=== PATIENT | female | born 1960 | race Caucasian/White ===

== ENCOUNTER 2024-07-17 20:56 | Emergency (ER) | payer SELFPAY ==
[2024-07-17 21:24] VITALS: BP 143/95
[2024-07-17 21:48] LABS: Urine Albumin 1+ (Neg - Trace); Urine Bilirubin 1+ (Negative); Urine Character Clear (Clear); Urine Color Yellow; Urine Glucose Trace (Negative); Urine Ketone Trace (Negative); Urine Leukocyte Negative (Negative); Urine Nitrite Negative (Negative); Urine Occult Blood Negative (Negative); Urine Specific Gravity 1.025 (<1.030); Urine Urobilinogen Negative (Neg - 1+)
[2024-07-17 21:54] LABS: % Basophils 0.1 % (0-2); % Eosinophils 0.1 % (0-6); % Immature Granulocytes 0.4 % (0-0.5); % Lymphocytes 3.5 % (20.5-51.1); % Monocytes 2.4 % (1.7-9.3); % Neutrophils 93.5 % (42.2-75.2); Absolute Immature Granulocytes 0.1 10^3/uL (0-0.05); Absolute Lymphocytes 0.5 10^3/uL (1.2-3.4); Absolute Monocytes 0.4 10^3/uL (0.1-0.6); Absolute Neutrophils 14.3 10^3/uL (1.4-6.5); Hematocrit 50.9 % (37.0-47.0); Hemoglobin 16.8 g/dL (12.0-16.0); Mean Corpuscular Hgb 29.9 pg (27.0-31.0); Mean Corpuscular Volume 90.7 fL (81.0-99.0); Nucleated Red Blood Cells % 0 %; Platelet Count 341 10^3/uL (130-400); Red Blood Cell Count 5.61 10^6/uL (4.20-5.40); Red Cell Dist. Width 13.2 % (11.5-14.5); White Blood Cell Count 15.3 10^3/uL (4.8-10.8)
[2024-07-17 21:57] LABS: Urine Mucus Many
[2024-07-17 21:58] LABS: Urine Bacteria Many (Negative); Urine Red Blood Cell 0-2 /HPF (0-2); Urine White Cell 0-2 /HPF (0-5)
[2024-07-17 22:03] LABS: AST (SGOT) 32 U/L (14-36); Albumin 5.2 g/dl (3.5-5.0); Alkaline Phosphatase 93 U/L (38-126); Blood Urea Nitrogen 17 mg/dl (7-17); Calcium 9.6 mg/dl (8.4-10.2); Carbon Dioxide 18 mmol/L (22-30); Chloride 105 mmol/L (98-107); Glucose 181 mg/dl (70-99); Lipase 72 U/L (23-300); Potassium 4.3 mmol/L (3.5-5.1); Sodium 138 mmol/L (135-145); Total Bilirubin 0.6 mg/dl (0.2-1.3); Total Protein 8.5 g/dl (6.3-8.2); eGFR > 60.00
[2024-07-17 22:13] LABS: ALT (SGPT) 36 U/L (0-35)
[2024-07-18 02:18] VITALS: BMI 30.9
[2024-07-18 02:25] VITALS: BP 135/81
[2024-07-18] MEDS: NSS 1000 IV (03:04)
--- NOTE | 2024-07-18 03:14 | ED.GENMED ---
History of Present Illness
General
Chief Complaint: Abdominal Symptoms
Source: patient
Time Seen by Provider: 07/18/24 03:07
History of Present Illness
History of Present Illness:
63-year-old female presents to the emergency room complaining of nausea vomiting and diarrhea. She feels dehydrated. She was unable to keep any liquid down prompting her decision to come to the emergency room. Patient does not have abdominal pain
per se just the vomiting. 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 Patient denies previous abdominal operations. She did not answer positively to
screening questions for suicide. Patient states she has a chronic desire to 'end it all'. She does not feel any different today than normal. She does not have a specific plan today to hurt herself but just general suicidal ideations. She is
already speaking with [facility].
Past History
Past History
ED Past Medical History: HTN and Other (Transgender); Negative Hypercholesterolemia, IDDM or NIDDM
Social History
Tobacco: Non-smoker
Family History
Family History: Negative CAD
Phy Exam
Physical Exam
Physical Exam:
General: Awake, Alert, Oriented X3. No acute distress.
Vitals: unremarkable
Head: Atraumatic
Eyes: Pupils equal, EOMI
Throat: Airway intact, no exudates, dry mucosa
Neck: Trachea midline
Lungs: Clear and equal b/l
Heart: Regular rate, no murmurs
Abd: Soft, Nontender, No pulsatile mass
Neuro: Nonfocal
Skin: Warm, dry, no rash
Extremities: pulses equal b/l, no edema
Course
Orders/Labs/Results
Orders:
Orders
07/17/24 21:31
Electrocardiogram (*1) Urgent
Reason for Study: Abdominal Pain
EKG- Treatment ONCE
IV Insert/Care/Rem.- Treatment PRN
07/17/24 21:43
Complete Blood Count/With Diff Urgent
Comprehensive Metabolic Panel Urgent
Lipase Urgent
Urinalysis Reflex To Culture Urgent
Date Specimen was Collected: 07/17/24
Time Specimen was Collected: 21:31
Urine Microscopic Reflex Cult Urgent
Urine Culture Urgent
ERROL Source: U
Specimen Description:
Date Specimen was Collected: 07/17/24
Time Specimen was Collected: 21:31
07/17/24 21:54
Crisis Consult Urgent
Reason for Consult: depression , suicide thoughts
Comment: Came to ED for abd pain
07/18/24
Electrocardiogram (*1) Stat
Comment: [facility] E[facility]
07/18/24 03:03
0.9% Sodium Chloride 1000 ml [Nss] 1,000 ml IV BOLUS
07/18/24 03:14
Ondansetron Injectable [Zofran] 4 mg IV NOW STA
07/18/24 04:56
Mag Hydrox/Al Hydrox/Simeth [Maalox] 30 ml Phenobarb/Hyoscy/Atropine/Scop [] 10 ml PO NOW
07/18/24 04:59
Mag Hydrox/Al Hydrox/Simeth [Maalox] 30 ml .ROUTE .STK-MED ONE
Phenobarb/Hyoscy/Atropine/Scop [] 10 ml .ROUTE .STK-MED ONE
Abnormal Lab Results
07/17/24
21:43
WBC 15.3 H 10^3/uL
(4.8-10.8)
RBC 5.61 H 10^6/uL
(4.20-5.40)
Hgb 16.8 H g/dL
(12.0-16.0)
Hct 50.9 H %
(37.0-47.0)
Abs Immat Gran (auto) 0.1 H 10^3/uL
(0-0.05)
Absolute Neuts (auto) 14.3 H 10^3/uL
(1.4-6.5)
Absolute Lymphs (auto) 0.5 L 10^3/uL
(1.2-3.4)
Neutrophils % 93.5 H %
(42.2-75.2)
Lymphocytes % 3.5 L %
(20.5-51.1)
Carbon Dioxide 18 L mmol/L
(22-30)
Glucose 181 H mg/dl
(70-99)
ALT 36 H U/L
(0-35)
Total Protein 8.5 H g/dl
(6.3-8.2)
Albumin 5.2 H g/dl
(3.5-5.0)
Urine Ketones Trace A
(Negative)
Urine Bilirubin 1+ A
(Negative)
Urine Bacteria (Reflex) Many A
(Negative)
Urine Glucose Trace A
(Negative)
Urine Albumin (Reflex) 1+ A
(Neg - Trace)
07/17/24 21:43
07/17/24 21:43
Vital Signs
Initial and Last Documented VS:
Initial Vital Signs
Temp Pulse Resp BP Pulse Ox
98.8 F 116 20 143/95 99
07/17/24 21:24 07/17/24 21:24 07/17/24 21:24 07/17/24 21:24 07/17/24 21:24
Last Documented Vital Signs
Temp Pulse Resp BP Pulse Ox
98.8 F 87 18 150/86 99
07/17/24 21:24 07/18/24 05:15 07/18/24 05:15 07/18/24 05:15 07/17/24 21:24
MDM/Problems Addressed
Differential Diagnosis Includes:
Gastroenteritis, dehydration, electrolyte abnormality
MDM/Problems Addressed:
Patient presents for evaluation after having significant nausea and vomiting. She feels dry. Labs show mild elevation white blood cell count. Hemoglobin is 16.8 suggesting hemoconcentration.
*Pulse Oximetry
Patient hypoxic: no
*EKG
Interpreted by ED Provider?: Yes
Heart Rate: 100
Rate: normal
Rhythm: sinus
[place]: normal axis
Interval: normal interval
QRS Pattern: normal QRS
Ischemia: no ischemia
*Adjunct Professor Of Voice Interpretation
Rate: normal
Interpretation: normal
Rhythm: sinus
*Critical Care Note
Total Time (30-74mins, 75-104mins- exclusive of procedures): Not Applicable
ED Attending Note
-
Portions of this chart may have been created with voice recognition software.� Occasional wrong word or��sound alike� substitutions may have occurred due to the inherent limitations of voice recognition software.
Discharge Plan
Departure
Patient Disposition: Home (Routine Discharge)
Date of Disposition: 07/18/24
Time of Disposition: 04:57
Patient with high blood pressure during this ER visit?: Yes
Condition: Good
Discharge Problem:
Acute nausea with nonbilious vomiting, Diarrhea, Acute dehydration
Instructions: Diarrhea in teens and adults, Dehydration, Adult (DC), Nausea and Vomiting, Adult (DC), BLOOD PRESSURE
Prescriptions:
New
ondansetron 4 mg tablet,disintegrating
4 mg PO TID PRN (Reason: nausea and vomiting) Qty: 10 0RF
No Action
lisinopril 10 MG tablet
10 mg PO DAILY Qty: 30 2RF
Referrals:
NONE,* [Family Provider] -
Interventions
Interventions:
*Risk Screen - Suicide Last Done: 07/17/24 21:24
*General Assessment Last Done: 07/17/24 21:24
*Neglect/Abuse Screening Last Done: 07/17/24 21:24
ED- Fall Risk Assessment Last Done: 07/17/24 21:24
*ED COVID-19 Vaccine History Last Done: 07/17/24 21:24
*Nursing Disposition Last Done: 07/18/24 05:18
SX-Mqbcsc-Mncewysvsv Assessment Last Done: 07/18/24 02:18
Discharge Date and Time
Discharge Date/Time: 07/18/24 05:18
Print Language: LIBERIAN
[2024-07-18] MEDS: ZOFRAN 4 MG IV (03:59)
[2024-07-18] MEDS: MAALOX 40 PO (05:01)
[2024-07-18 05:15] VITALS: BP 150/86
== END 2024-07-18 05:18 | disposition home or self-care (01) ==
LOC: EMR 20:56
PROVIDERS: Emergency Medicine; EMERGENCY PHYSICIAN Emergency Medicine
DX: E86.0 Dehydration (principal); R11.2 Nausea with vomiting, unspecified; R19.7 Diarrhea, unspecified; I10 Essential (primary) hypertension; R45.851 Suicidal ideations
CPT/HCPCS: 96374; 96361; 99284; 80053; 81003; 81015; 83690; 85025; 87086; 93005